=== PATIENT | female | born 1955 | race Caucasian/White ===

== ENCOUNTER 2016-08-28 11:47 | Emergency (ER) | payer OTHER ==
[2016-08-28 12:14] VITALS: TEMP 98.3; BMI 20.5
[2016-08-28 12:30] LABS: AMORPHOUS 1+; LEUKOCYTES/URINE NEG (NEGATIVE); NITRITE/URINE NEG (NEGATIVE); RBC/URINE 0-2 (0-5); URINE OCCULT BLOOD NEG (NEG/TRACE); WBC/URINE 0-2 (0-5)
[2016-08-28 13:48] VITALS: BP 126/68; PULSE 78
--- NOTE | 2016-08-28 14:16 | EDPRACDOC ---
- General Information Chief Complaint: Female Urogenital Problems Stated Complaint: BLADDER ISSUES Time Seen by Provider: 08/28/16 14:13 Information Source: Patient - History of Present Illness HPI: PT PRESENTS TODAY WITH DIFFICULTY URINATING. PT STATES THAT SHE FOLLOWS UROLOGY AND HAD BOTOX INJECTION 2 WEEKS AGO. STATES THAT SYMPTOMS OF URGENCY WERE RELIEVED UNTIL DAY 5 AND NOW HER URGENCY IS WORSENING. STATES CALLED UROLOGIST WHO TOLD PT COME TO ED TO HAVE POST VOID RESIDUAL ASSESSED AND CHECK FOR UTI. PT HAS APPT WITH UROLOGIST TOMORROW. 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) Surgical History: Denies: Hysterectomy - Social Medical History Smoking Status: Never smoker EDM Review of Systems - Review of Systems ROS Negative Except as Marked: Yes All systems reviewed and were negative except as marked Constitutional: No Symptoms Reported Respiratory: No Symptoms Reported Cardiovascular: No Symptoms Reported Gastrointestinal: No Symptoms Reported Genitourinary: Frequency, Nocturia, Urgency to urinate Neurological: No Symptoms Reported Musculoskeletal: No Symptoms Reported Integumentary: No Symptoms Reported - Physical Exam Constitutional: Alert (Awake), No apparent distress Oriented to: Time, Person, Place Last recorded Vital Signs: Last Vital Signs Temp 98.3 F 08/28/16 12:10 Pulse 78 08/28/16 13:48 Resp 18 08/28/16 13:48 BP 126/68 08/28/16 13:48 Pulse Ox 100 08/28/16 13:48 Oxygen Pulse Oxygen Saturation 100 O2 Device Room Air Oxygen Flow Rate Fraction of Inspired Oxygen ( FIO2) - HEENT Head: Normal Eye Exam: Normal Neck: Normal, Denies Pain, Midline - Respiratory/Cardiovascular Respiratory: Normal - CTA Cardiovascular: Normal - GI Auscultation: Normal Palpation: Normal Tenderness: Non tender - Bladder: Normal - Musculoskeletal Back: Normal Extremities: Normal - Integumentary Skin: Normal Lymphatics: Normal - Neurologic Cerebellar: Normal Mood Description: Normal Thought: Coherent Perception: Normal - Results Urine Color Yellow 08/28/16 12:16 Urine Clarity Sl cldy 08/28/16 12:16 Urine pH 7.0 (5.0-8.0) 08/28/16 12:16 Ur Specific [place] 1.010 (1.003-1.035) 08/28/16 12:16 Urine Protein Neg (NEG/TRACE) 08/28/16 12:16 Urine Glucose (UA) Neg (NEGATIVE) 08/28/16 12:16 Urine Ketones Neg (NEGATIVE) 08/28/16 12:16 Urine Occult Blood Neg (NEG/TRACE) 08/28/16 12:16 Urine Nitrite Neg (NEGATIVE) 08/28/16 12:16 Urine Bilirubin Neg (NEGATIVE) 08/28/16 12:16 Urine Urobilinogen <2.0 MG/DL (0-1) 08/28/16 12:16 Ur Leukocyte Esterase Neg (NEGATIVE) 08/28/16 12:16 Urine RBC 0-2 (0-5) 08/28/16 12:16 Urine WBC 0-2 (0-5) 08/28/16 12:16 Ur Epithelial Cells 2+ 08/28/16 12:16 Amorphous Sediment 1+ 08/28/16 12:16 Urine Bacteria Few (NEG/FEW) 08/28/16 12:16 Urine Mucus Occ (NEG/OCC) 08/28/16 12:16 Lab Results 08/28/16 12:16 Urine Color Yellow Urine Clarity Sl cldy Urine pH 7.0 Ur Specific [place] 1.010 Urine Protein Neg Urine Glucose (UA) Neg Urine Ketones Neg Urine Occult Blood Neg Urine Nitrite Neg Urine Bilirubin Neg Urine Urobilinogen <2.0 Ur Leukocyte Esterase Neg Urine RBC 0-2 Urine WBC 0-2 Ur Epithelial Cells 2+ Amorphous Sediment 1+ Urine Bacteria Few Urine Mucus Occ - Additional Information CASE DISCUSSED WITH DR. WOODARD. POST VOID RESIDUAL WAS 108 CC. PT OK FOR HOME. Decision Time to Discharge: 14:18 - Departure Disposition: Home Condition: Stable Final Diagnosis: POST VOID RESIDUAL URINE Instructions: Chronic Urinary Retention in Women (ED) Education/Counseling Given To: Patient Education/Counseling Given Regarding: Diagnosis, Treatment, Follow Up Referrals: Guilherme Unger MD [Primary Care Provider] - One Week Additional Instructions: CONTINUE FOLLOW UP WITH UROLOGY.
== END 2016-08-28 14:33 | disposition home or self-care (01) ==
LOC: EDMC 11:47
DX: N39.43 Post-void dribbling (principal)
CPT/HCPCS: 81001; 99282